=== PATIENT | female | born 1970 | race Caucasian/White ===

== ENCOUNTER 2020-02-02 16:10 | Outpatient (CLI) | payer OTHER, SELFPAY ==
[2020-02-02 16:47] LABS: Add Urine Microscopic? YES; Appearance Urine Cloudy (Clear); Bilirubin Urine Negative (Negative); Blood Urine 1+ (Negative); Color Urine Yellow (Yellow); Glucose Urine UA Negative (Negative); Ketones Urine Negative (Negative); Leukocyte Esterase Ur 1+ LEU/UL (Negative); Nitrate Urine Positive (Negative); Protein Urine Trace (Negative); Specific Grav Ur 1.025 (1.010-1.020); Urobilinogen Urine 0.2 mg/dL (0.2-1.0)
[2020-02-02 16:54] LABS: Squamous Epithelial Cell Urine Few /hpf (Few); WBC Clumps Urine Present /hpf; WBC Urine 51-75 /hpf (0-3)
[2020-02-02 16:55] LABS: Bacteria Urine 4+ /hpf
[2020-02-02 17:07] LABS: Influenza Control Valid (Valid)
[2020-02-05 11:16] LABS: SARS-CoV-2 RNA PCR Negative
== END 2020-02-02 16:11 | disposition home or self-care (01) ==
LOC: CHSLAB 16:13
PROVIDERS: PCP Family Medicine; Visit Provider Family Medicine
DX: R51.9 Headache, unspecified (principal); R30.0 Dysuria
CPT/HCPCS: 81001; 87077; 87081; 87086; 87088; 87186; 87635; 87804; 87880; C9803; U0003

== ENCOUNTER 2020-07-19 19:23 | Emergency (ER) | payer OTHER, SELFPAY ==
[2020-07-19 19:30] VITALS: BP 150/91; PULSE 99; RESP 20; TEMP 36.7; O2SAT 98
--- NOTE | 2020-07-19 19:36 | ED.DENTAL ---
HPI - Dental/Oral General Chief complaint: Dental/Oral Stated complaint: ear pain Time Seen by Provider: 07/19/20 19:37 Source: patient Mode of arrival: ambulatory Limitations: no limitations History of Present Illness HPI Narrative: 49-year-old woman comes in today complaining of left lower jaw pain, left neck pain, and left ear pain that started yesterday. she has a tooth with decay in her left lower jaw. She states she also has been having vertigo in a fairly steady fashion since the onset of the pain. Patient states she has less pain right now and her vertigo has resolved. She has had no vomiting but she had difficulty walking earlier. She states she had an episode of vertigo a few years ago that was associated with a upper respiratory infection. She denies tinnitus and difficulty hearing. She is taking Dramamine for her symptoms and it seems to help. Complaint: tooth pain Onset (ago): day(s) (1) Duration: constant Severity: moderate Relieving factors: nothing Exacerbating factors: nothing Context: history of dental caries Associated symptoms: pain with swallowing Related Data Home Medications Medication Instructions Recorded Confirmed gabapentin 300 mg PO DAILY 07/19/20 07/19/20 lamotrigine 50 mg PO DAILY 07/19/20 07/19/20 venlafaxine 150 mg PO DAILY 07/19/20 07/19/20 Allergies Allergy/AdvReac Type Severity Reaction Status Date / Time No Known Allergies Allergy Unverified 03/24/15 14:19 Review of Systems Review of Systems: All systems reviewed & are unremarkable except as noted in HPI and below Constitutional: Constitutional: Denies chills and Denies fever(s) Eyes: Eyes: Denies change in vision and Denies photophobia ENT: Reports as per HPI, Denies dysphagia, Reports vertigo, Denies nasal congestion and Denies sore throat Respiratory: Respiratory: Denies cough and Denies dyspnea Gastrointestinal: Gastrointestinal: Denies abdominal pain, Denies nausea and Denies vomiting Musculoskeletal: Musculoskeletal: Denies back pain, Denies arthralgias and Denies joint swelling Integumentary/Breasts: Skin/Breast: Denies pruritus, Denies erythema and Denies rash Neurologic: Reports vertigo, Denies syncope, Denies headache(s), Denies focal weakness and Denies numbness Hematologic/Lymphatic: Hematologic/Lymphatic: Denies easy bleeding and Denies easy bruising Allergic/Immunologic: Allergic/Immunologic: Denies lip swelling, Denies throat swelling and Denies tongue swelling PMFSH Past Medical History Medical History (Updated 07/19/20 @ 19:54 by Kirk Beal MD) Anxiety Depression Fibromyalgia Surgical History Surgical History (Updated 07/19/20 @ 19:50 by Kirk Beal MD) H/O hand surgery right 5th metacarpal Hx of tubal ligation Social History Social History Smoking status: Never smoker Alcohol intake: never Substance use: never Living arrangements: with family Exam Const: General: healthy appearing, no acute distress and alert Orientation/consciousness: patient oriented x3 Limitations: no limitations HENMT: Head: normal to inspection Ears: external ears normal, TM's normal bilaterally and EAC's normal General nose exam: Normal nares present Face and sinus: normal facial exam Mouth: Yes moist mucous membranes Throat: posterior oropharynx normal Other: Left 2nd and 3rd molar with gross decay. There is no gingival erythema, drainage or swelling. Eyes: Conjunctivae: conjunctivae normal Pupils: Equal, round and reactive pupils present EOM: EOMs intact bilaterally Neck: Neck: normal visual inspection Other: mildly tender, mobile, left anterior cervical adenopathy. No neck swelling or masses. Resp: Effort & Inspection: normal respiratory effort and not labored Auscultation: clear to auscultation bilaterally, no rales, no rhonchi and no wheezes Cardio: Rate: regular rate Rhythm: regular rhythm Heart so
[2020-07-19 20:00] VITALS: BP 150/91; PULSE 97; RESP 20; TEMP 36.7; O2SAT 98
== END 2020-07-19 20:02 | disposition home or self-care (01) ==
PROVIDERS: Emergency Provider Emergency Medicine; PCP Family Medicine
DX: R42 Dizziness and giddiness (principal); K02.9 Dental caries, unspecified; H92.02 Otalgia, left ear
CPT/HCPCS: 99283

== ENCOUNTER 2020-09-09 23:59 | Emergency (ER) | payer OTHER, SELFPAY ==
[2020-09-10] VITALS: BP 191/108; PULSE 87; RESP 20; TEMP 36.6; O2SAT 100
[2020-09-10] MEDS: MUPIROCIN 2% OINT 22 GM TUBE 3 APPLIC TOPICAL (00:15)
[2020-09-10] MEDS: LORazepam INJ (*CRX) 2 MG/ML VIAL 0.5 MG IV PUSH (00:30)
[2020-09-10] MEDS: fentaNYL CITRATE INJ (*CRX) 100 MCG/2 ML VIAL 75 MCG IV PUSH (00:30)
[2020-09-10] MEDS: SODIUM CHLORIDE 0.9% IV 1,000 ML 999 ML IV CONT (00:31)
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
[2020-09-10 00:44] VITALS: BP 133/86
[2020-09-10] MEDS: TETANUS,DIPHTHERIA,AC PERTUSSIS ADULT 0.5 ML (ADACEL) IM (01:02)
[2020-09-10 01:36] VITALS: BP 139/79; PULSE 88; RESP 20; TEMP 36.4; O2SAT 95
== END 2020-09-10 01:38 | disposition home or self-care (01) ==
PROVIDERS: Emergency Provider Family Medicine
DX: T24.001A Burn of unspecified degree of unspecified site of right lower limb, except ankle and foot, initial encounter (principal); X12.XXXA Contact with other hot fluids, initial encounter
CPT/HCPCS: 16025; 90471; 90715; 96361; 96374; 96375; 99283; 99284; A9270; J2060; J3010; J7030

== ENCOUNTER 2020-09-29 19:49 | Emergency (ER) | payer OTHER, SELFPAY ==
--- NOTE | ~2020-09-29 | XR_ITS ---
XR chest 2V DATE: 09/29/2020 20:55 INDICATION: Productive cough TECHNIQUE: PA and lateral views COMPARISON: 12/24/2016 two-view chest FINDINGS: Normal heart size. No hilar or mediastinal enlargement. No pulmonary infiltrate or consolid ation, pleural effusion or pulmonary vascular congestion or pneumothorax. Chronic mild anterior wedge compression fracture deformity of T9. Chronic moderate anterior wedge compression fracture deformity of L1. Osteopenia. IMPRESSION: No active cardiopulmonary disease Reviewed, dictated and finalized at location A.
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
[2020-09-29 20:45] VITALS: BP 170/79; PULSE 20; RESP 20; TEMP 36.8; O2SAT 99
[2020-09-29 21:35] LABS: Basophils Absolute Auto 0.02 K/mm3 (0.00-0.10); Basophils Percent Auto 0.2 % (0.0-1.0); Eosinophils Absolute Auto 0.16 K/mm3 (0.02-0.50); Eosinophils Percent Auto 1.9 % (1.0-6.0); Hematocrit 29.2 % (35.0-49.0); Immature Granulocyte Absolute 0.04 K/mm3 (0.00-0.00); Immature Granulocyte Percent A 0.5 % (0.0-0.0); Lymphocytes Absolute Auto 2.02 K/mm3 (1.10-4.50); Lymphocytes Percent Auto 24.5 % (18.0-42.0); Mean Corpuscular HGB Conc 30.8 g/dL (32.0-36.0); Mean Corpuscular Hemoglobin 24.7 pg (27.0-31.0); Mean Platelet Volume 9.7 fl (9.2-11.8); Monocytes Absolute Auto 0.53 K/mm3 (0.10-0.90); Monocytes Percent Auto 6.4 % (2.0-11.0); Neutrophils Absolute Auto 5.5 K/mm3 (1.7-7.2); Neutrophils Percent Auto 66.5 % (50.0-70.0); Platelet Count Result 491 K/mm3 (150-420); Red Blood Count 3.65 M/mm3 (4.20-5.40); Red Cell Distribution Width 15.9 % (11.6-14.4); White Blood Count 8.2 K/mm3 (4.8-10.8)
[2020-09-29 21:53] LABS: Lactic Acid Reflex 1.1 mmol/L (0.4-2.0)
[2020-09-29 22:00] LABS: Alanine Aminotransferase 20 U/L (14-59); Albumin Level 3.6 g/dL (3.4-5.0); Alkaline Phosphatase 119 U/L (46-116); Anion Gap 9 mmol/L (8-16); Aspartate Amino Transferase < 10 U/L (15-37); Bilirubin,Total 0.3 mg/dL (0.00-1.00); Blood Urea Nitrogen 18 mg/dL (7-18); CRP 0.8 mg/dL (0.0-0.9); Calcium 9.1 mg/dL (8.5-10.1); Carbon Dioxide 28 mmol/L (21-32); Chloride 101 mmol/L (98-108); Estimated CRCL calculation 58 ml/min; Estimated Glomerular Filt Rate 58; Glucose 107 mg/dL (70-99); Osmolality Calculated 287 mOsm/kg (285-295); Potassium 3.6 mmol/L (3.5-5.1); Sodium 138 mmol/L (136-145); Total Protein 8.3 g/dL (6.4-8.2)
[2020-09-29 22:21] VITALS: BP 145/75; PULSE 80; RESP 20; TEMP 36.6; O2SAT 99
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
== END 2020-09-29 22:24 | disposition home or self-care (01) ==
PROVIDERS: Emergency Provider Emergency Medicine; PCP Family Medicine
DX: T24.001A Burn of unspecified degree of unspecified site of right lower limb, except ankle and foot, initial encounter (principal); D64.9 Anemia, unspecified
CPT/HCPCS: 36415; 71046; 80053; 83605; 85025; 86140; 87040; 87070; 87077; 87186; 87205; 99283; A9270

== ENCOUNTER 2024-11-20 14:43 | Outpatient (CLI) | payer OTHER, SELFPAY ==
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
[2024-11-20 15:04] LABS: Hematocrit 39.0 % (35.0-49.0); Hemoglobin 12.8 g/dL (12.0-15.0); Immature Granulocyte Percent A 0.2 % (0.0-0.0); Lymphocytes Absolute Auto 1.72 K/mm3 (1.10-4.50); Mean Corpuscular HGB Conc 32.8 g/dL (32-36); Mean Corpuscular Hemoglobin 29.3 pg (27.0-31.0); Mean Corpuscular Volume 89.2 fL (78.0-102.0); Nucleated Red Blood Cells Absolute Auto 0.00 K/mm3 (0.00-0.00); Nucleated Red Blood Cells Perc 0.0 % (0-0.0); Platelet Count Result 268 K/mm3 (150-420); Red Blood Count 4.37 M/mm3 (4.20-5.40); White Blood Count 6.0 K/mm3 (4.8-10.8)
[2024-11-20 15:05] LABS: Glucose Urine UA Negative (Negative); Leukocyte Esterase Ur Trace (Negative); Nitrate Urine Negative (Negative); Specific Grav Ur >= 1.030 (1.010-1.020)
[2024-11-20 15:07] LABS: Add Urine Microscopic? YES; Appearance Urine Sl Cloudy (Clear)
[2024-11-20 15:44] LABS: Alanine Aminotransferase 33 U/L (6-35); Albumin Level 4.6 g/dL (3.5-5.1); Alkaline Phosphatase 82 U/L (38-126); Anion Gap 6 mmol/L (4-12); Aspartate Amino Transferase 40 U/L (14-36); Bilirubin,Total 0.6 mg/dL (0.2-1.3); Blood Urea Nitrogen 16 mg/dL (7-17); Calcium 9.8 mg/dL (8.4-10.2); Carbon Dioxide 32 mmol/L (22-30); Chloride 101 mmol/L (98-107); Estimated Glomerular Filt Rate > 60; Glucose 97 mg/dL (65-110); Osmolality Calculated 289 mOsm/kg (285-295); Potassium 4.4 mmol/L (3.4-5.0); Sodium 139 mmol/L (137-145); Total Protein 7.8 g/dL (6.3-8.2)
[2024-11-20 16:14] LABS: Thyroid Stimulating Hormone 2.200 uIU/mL (0.465-4.680)
== END 2024-11-20 14:44 | disposition home or self-care (01) ==
LOC: CHSLAB 14:46
PROVIDERS: PCP Family Medicine; Visit Provider Family Medicine
DX: R53.83 Other fatigue (principal)
CPT/HCPCS: 36415; 80053; 81001; 84443; 85025